=== PATIENT | male | born 1940 | race Caucasian/White ===

== ENCOUNTER 2023-10-22 17:29 | Inpatient (IN) | payer OTHER ==
[2023-10-22] MEDS ORDERED: CEFTRIAXONE 1 GM/50 ML BAG ONE (20:18)
[2023-10-22] MEDS ORDERED: AZITHROMYCIN IVPB 500 MG/250 ML BAG IVPB ONE (20:19)
[2023-10-22] MEDS ORDERED: DEXTROSE 50%-WATER 25 GM/50 ML DISP.SYRIN ONE (20:27)
[2023-10-22 20:29] LABS: BASO % 0.5 % (0-2.0); EOS % 1.9 % (0-4.5); HEMATOCRIT 35.1 % (35.4-49); LYMPH % 6.3 % (8-40); MCH 28.8 pg (25.7-33.7); MCHC 31.3 g/dl (32.0-35.9); MEAN CELL VOLUME 91.9 fl (80-96); MEAN PLT VOLUME 7.9 fl (7.5-11.1); MONO % 8.8 % (3.8-10.2); NEUT % 82.5 % (42.8-82.8); PLATELET COUNT 271 10^3/uL (134-434); RBC 3.82 M/mm3 (4.00-5.60); RDW 22.1 % (11.9-15.9); WHITE BLOOD COUNT 8.4 K/mm3 (4.0-10.0)
[2023-10-22] MEDS: CEFTRIAXONE 1 GM in DEXTROSE 5%-WATER - 100 ML IVPB ONE (20:31)
[2023-10-22] MEDS: DEXTROSE 50%-WATER - 25 GM/50 ML VIAL IVPUSH ONE (20:31)
[2023-10-22 20:33] LABS: EPI CELLS 1 /uL (0-25.1); HYALINE CASTS 1 /uL (0-3.1); PH,URINE 7.5 (5.0-8.0); URINE APPEARANCE TURBID; URINE BACTERIA 204 /uL (0-1359); URINE BILIRUBIN NEGATIVE (NEGATIVE); URINE COLOR YELLOW; URINE GLUCOSE (UA) NEGATIVE (NEGATIVE); URINE KETONE NEGATIVE (NEGATIVE); URINE LEUK ESTERASE 3+ (NEGATIVE); URINE NITRITE NEGATIVE (NEGATIVE); URINE PROTEIN 2+ (NEGATIVE); URINE RBC 65 /uL (0-23.9); URINE WBC 7022 /uL (0-25.8)
[2023-10-22 20:39] LABS: INR 1.24 (0.83-1.09); PROTHROMBIN TIME (PATIENT) 13.9 SEC (9.7-13.0)
[2023-10-22] MEDS: AZITHROMYCIN IVPB 500 MG in DEXTROSE 5%-WATER - 250 ML IVPB ONE (20:41)
[2023-10-22 20:42] LABS: ACTIVATED PTT 32.1 SECONDS (25.2-36.5)
[2023-10-22 20:46] LABS: CHLORIDE 97 mmol/L (98-107); POTASSIUM 4.8 mmol/L (3.5-5.1); SODIUM 134 mmol/L (136-145)
[2023-10-22 20:48] LABS: ANION GAP 8 mmol/L (4-13); CALCIUM 8.4 mg/dL (8.5-10.1); CO2 29 mmol/L (21-32)
[2023-10-22 20:49] LABS: ALBUMIN 2.4 g/dl (3.4-5.0); BLOOD UREA NITROGEN 37.2 mg/dL (7-18)
[2023-10-22 20:51] LABS: CREATININE 4.1 mg/dL (0.55-1.3); SGPT/ALT 15 U/L (13-61)
[2023-10-22 20:52] LABS: SGOT/AST 24 U/L (15-37)
[2023-10-22 20:53] LABS: BILIRUBIN,TOTAL 0.4 mg/dL (0.2-1); GLUCOSE,RANDOM 47 mg/dL (74-106); TOT PROT 6.6 g/dl (6.4-8.2)
[2023-10-22 20:54] LABS: ALK PHOS 115 U/L (45-117)
[2023-10-22 21:11] LABS: ANISOCYTOSIS 3+; MACROCYTOSIS 1+; OVALOCYTE 1+
[2023-10-22 21:37] LABS: YEAST NEGATIVE (NEGATIVE)
[2023-10-22] MEDS: SODIUM CHLORIDE 1,000 ML IV STA (22:00)
[2023-10-22 23:21] LABS: MAGNESIUM 2.1 mg/dL (1.8-2.4)
[2023-10-22 23:25] LABS: PHOSPHOROUS 4.1 mg/dL (2.5-4.9)
[2023-10-23] MEDS: INSULIN ASPART SLIDING SCALE (NOVOLOG) 1 VIAL SQ SCH (01:19)
[2023-10-23] MEDS: PIPERACILLIN/TAZOB 4.5 GM 4.5 GM in DEXTROSE 5%-WATER 100 ML IVPB SCH (03:30)
[2023-10-23] MEDS: PIPERACILLIN/TAZOB 2.25 GM 2.25 GM in DEXTROSE 5%-WATER - 50 ML IVPB SCH (03:53)
[2023-10-23] MEDS ORDERED: DEXTROSE 50%-WATER 25 GM/50 ML DISP.SYRIN ONE (05:37)
[2023-10-23] MEDS: HEPARIN NA (PORCINE) 5,000 UNITS/ML 1ML VIAL SQ SCH (05:47)
[2023-10-23] MEDS: SODIUM BICARBONATE 650 MG TABLET PO SCH (05:47)
[2023-10-23] MEDS: DEXTROSE 50%-WATER - 25 GM/50 ML VIAL IVPUSH ONE (05:51)
[2023-10-23] MEDS ORDERED: PNEUMOC 20-VAL CONJ-DIP CRM/PF 0.5 ML SYRINGE IM ONE (06:52)
[2023-10-23] MEDS ORDERED: AZITHROMYCIN IVPB 500 MG/250 ML BAG IVPB SCH (10:00)
[2023-10-23 11:17] LABS: BASO % 0.4 % (0-2.0); EOS % 2.8 % (0-4.5); HEMATOCRIT 34.5 % (35.4-49); HEMOGLOBIN 10.9 GM/dL (11.7-16.9); LYMPH % 7.3 % (8-40); MCHC 31.5 g/dl (32.0-35.9); MEAN CELL VOLUME 91.9 fl (80-96); MONO % 10.2 % (3.8-10.2); NEUT % 79.3 % (42.8-82.8); PLATELET COUNT 260 10^3/uL (134-434); RBC 3.75 M/mm3 (4.00-5.60); RDW 21.2 % (11.9-15.9); WHITE BLOOD COUNT 6.9 K/mm3 (4.0-10.0)
[2023-10-23 11:32] LABS: POTASSIUM 4.8 mmol/L (3.5-5.1)
[2023-10-23 11:34] LABS: CALCIUM 8.6 mg/dL (8.5-10.1)
[2023-10-23 11:35] LABS: ALBUMIN 2.3 g/dl (3.4-5.0); BLOOD UREA NITROGEN 39.6 mg/dL (7-18); MAGNESIUM 2.3 mg/dL (1.8-2.4)
[2023-10-23 11:38] LABS: CREATININE 4.5 mg/dL (0.55-1.3); PHOSPHOROUS 3.9 mg/dL (2.5-4.9)
[2023-10-23 11:39] LABS: BILIRUBIN,TOTAL 0.5 mg/dL (0.2-1)
[2023-10-23 11:41] LABS: TOT PROT 6.3 g/dl (6.4-8.2)
[2023-10-23] MEDS ORDERED: ACYCLOVIR INJECTION 500 MG in DEXTROSE 5%-WATER - 100 ML IVPB SCH (12:00)
[2023-10-23] MEDS: POLYETHYLENE GLYCOL (HEALTHYLAX) 3350 17 GM PACKET PO SCH (12:12)
[2023-10-23] MEDS: PANTOPRAZOLE 40 MG TABLET PO SCH (12:25)
[2023-10-23] MEDS: AZITHROMYCIN IVPB 250 MG in DEXTROSE 5%-WATER - 250 ML IVPB SCH (12:25)
[2023-10-23] MEDS: VITAMIN B COMP W-C 1 EA TABLET (NEPHRO-VITE) PO SCH (12:25)
[2023-10-23] MEDS: valACYclovir HCL 500 MG TABLET (FP) PO SCH ×2 (12:56→12:57)
[2023-10-23] MEDS: LORazepam 2 MG/ML SDV VIAL IVPUSH ONE (12:56)
[2023-10-23] MEDS: ACYCLOVIR INJECTION 500 MG in DEXTROSE 5%-WATER - 100 ML IVPB SCH (12:57)
[2023-10-23] MEDS: ACETAMINOPHEN 1000 MG/100 ML BAG IVPB ONE (14:45)
[2023-10-23 15:29] LABS: N-TERMINAL BNP 8568.6 pg/ml (5-450)
[2023-10-23] MEDS: DEXTROSE 5% IVPB SCH (15:43)
[2023-10-23] MEDS: WATER IVPB SCH (15:43)
[2023-10-23] MEDS: ACYCLOVIR IVPB SCH (15:43)
[2023-10-23] MEDS ORDERED: SODIUM CHLORIDE 250 ML IV PRN (20:03)
[2023-10-23] MEDS: LATANOPROST 0.005% OPHTH SOLN 2.5ML BOTTLE OU SCH (22:24)
[2023-10-23] MEDS: PIPERACILLIN/TAZOB 3.375 GM 3.375 GM in DEXTROSE 5%-WATER - 50 ML IVPB SCH (22:24)
[2023-10-23] MEDS: ACETAMINOPHEN 325 MG TABLET (FP) PO ONE (23:00)
[2023-10-24] MEDS: DEXTROSE 50%-WATER 25 GM/50 ML DISP.SYRIN IVPUSH ONE (06:31)
[2023-10-24 08:59] LABS: HEMATOCRIT 39.4 % (35.4-49); HEMOGLOBIN 12.6 GM/dL (11.7-16.9); MCH 29.2 pg (25.7-33.7); MEAN CELL VOLUME 91.5 fl (80-96); MEAN PLT VOLUME 7.6 fl (7.5-11.1); PLATELET COUNT 258 10^3/uL (134-434); RBC 4.31 M/mm3 (4.00-5.60); RDW 21.2 % (11.9-15.9); WHITE BLOOD COUNT 6.5 K/mm3 (4.0-10.0)
[2023-10-24 09:04] LABS: POTASSIUM 4.3 mmol/L (3.5-5.1)
[2023-10-24 09:16] LABS: CALCIUM 9.1 mg/dL (8.5-10.1)
[2023-10-24 09:17] LABS: BLOOD UREA NITROGEN 46.3 mg/dL (7-18); MAGNESIUM 2.4 mg/dL (1.8-2.4)
[2023-10-24 09:20] LABS: CREATININE 5.1 mg/dL (0.55-1.3)
[2023-10-24 09:21] LABS: PHOSPHOROUS 4.8 mg/dL (2.5-4.9)
[2023-10-24 12:55] LABS: ARTERIAL BLD GAS O2 SATURATION 98.1 % (95-98); ARTERIAL BLOOD GAS BASE EXCESS 1.2 mmol/L (-2-2)
[2023-10-24 12:58] LABS: ALLENS TEST POSITIVE
[2023-10-24] MEDS ORDERED: VANCOMYCIN/WATER FOR INJ (PEG) 1,000 MG/200 ML BAG IVPB ONE (19:00)
[2023-10-24] MEDS: PIPERACILLIN/TAZOB 2.25 GM 2.25 GM in DEXTROSE 5%-WATER - 50 ML IVPB SCH (20:15)
[2023-10-24] MEDS: EPOETIN ALFA-EPBX 4,000 UNIT/ML VIAL SQ SCH (20:16)
[2023-10-24] MEDS: VANCOMYCIN/WATER FOR INJ (PEG) 1,000 MG/200 ML BAG IVPB ONE (23:22)
[2023-10-25] MEDS: DEXTROSE 50%-WATER 25 GM/50 ML DISP.SYRIN IVPUSH ONE (01:13)
[2023-10-25 09:34] LABS: BASO % 0.9 % (0-2.0); EOS % 3.4 % (0-4.5); HEMATOCRIT 32.8 % (35.4-49); HEMOGLOBIN 10.3 GM/dL (11.7-16.9); LYMPH % 8.7 % (8-40); MCH 28.9 pg (25.7-33.7); MCHC 31.5 g/dl (32.0-35.9); MEAN CELL VOLUME 91.7 fl (80-96); MEAN PLT VOLUME 7.4 fl (7.5-11.1); MONO % 8.3 % (3.8-10.2); NEUT % 78.7 % (42.8-82.8); PLATELET COUNT 238 10^3/uL (134-434); RBC 3.58 M/mm3 (4.00-5.60); RDW 21.2 % (11.9-15.9); WHITE BLOOD COUNT 7.2 K/mm3 (4.0-10.0)
[2023-10-25 09:54] LABS: POTASSIUM 3.4 mmol/L (3.5-5.1)
[2023-10-25] MEDS ORDERED: ACYCLOVIR IVPB SCH (10:00)
[2023-10-25] MEDS ORDERED: WATER IVPB SCH (10:00)
[2023-10-25] MEDS ORDERED: DEXTROSE 5% IVPB SCH (10:00)
[2023-10-25] MEDS ORDERED: valACYclovir HCL 500 MG TABLET (FP) PO SCH (10:00)
[2023-10-25 10:19] LABS: ALBUMIN 2.1 g/dl (3.4-5.0); BLOOD UREA NITROGEN 23.2 mg/dL (7-18)
[2023-10-25 10:20] LABS: MAGNESIUM 2.1 mg/dL (1.8-2.4)
[2023-10-25 10:23] LABS: BILIRUBIN,TOTAL 0.7 mg/dL (0.2-1); CREATININE 3.1 mg/dL (0.55-1.3); TOT PROT 5.7 g/dl (6.4-8.2)
[2023-10-25] MEDS ORDERED: SODIUM CHLORIDE 250 ML IV PRN (13:22)
[2023-10-25] MEDS: POTASSIUM CHLORIDE ORAL LIQUID 20 MEQ/15 ML PO ONE (15:38)
[2023-10-25] MEDS: KCL 10 MEQ IVPB 10 MEQ/100 ML INFUS.BAG IVPB SCH (15:50)
[2023-10-26] MEDS ORDERED: DEXTROSE 50%-WATER 25 GM/50 ML DISP.SYRIN ONE (07:01)
[2023-10-26 07:52] LABS: BASO % 0.8 % (0-2.0); EOS % 2.8 % (0-4.5); HEMATOCRIT 33.6 % (35.4-49); HEMOGLOBIN 10.7 GM/dL (11.7-16.9); LYMPH % 11.4 % (8-40); MCH 29.4 pg (25.7-33.7); MCHC 31.8 g/dl (32.0-35.9); MEAN CELL VOLUME 92.3 fl (80-96); MEAN PLT VOLUME 7.7 fl (7.5-11.1); MONO % 10.1 % (3.8-10.2); NEUT % 74.9 % (42.8-82.8); PLATELET COUNT 206 10^3/uL (134-434); RBC 3.64 M/mm3 (4.00-5.60); RDW 21.2 % (11.9-15.9); WHITE BLOOD COUNT 7.5 K/mm3 (4.0-10.0)
[2023-10-26 08:14] LABS: CHLORIDE 102 mmol/L (98-107); POTASSIUM 3.9 mmol/L (3.5-5.1); SODIUM 139 mmol/L (136-145)
[2023-10-26 08:28] LABS: CALCIUM 8.3 mg/dL (8.5-10.1)
[2023-10-26 08:29] LABS: ANION GAP 14 mmol/L (4-13); BLOOD UREA NITROGEN 29.7 mg/dL (7-18); CO2 23 mmol/L (21-32); MAGNESIUM 2.2 mg/dL (1.8-2.4)
[2023-10-26 08:32] LABS: CREATININE 3.8 mg/dL (0.55-1.3); SGOT/AST 9 U/L (15-37); SGPT/ALT 12 U/L (13-61)
[2023-10-26 08:34] LABS: TOT PROT 5.8 g/dl (6.4-8.2)
[2023-10-26 08:48] LABS: ALK PHOS 117 U/L (45-117); GLUCOSE,RANDOM 37 mg/dL (74-106)
[2023-10-26] MEDS: ALBUMIN HUMAN 25% 12.5 GM/50 ML VIAL IV SCH (09:30)
[2023-10-26 09:53] LABS: ANISOCYTOSIS 2+; MACROCYTOSIS 0
[2023-10-27 08:08] LABS: POTASSIUM 3.8 mmol/L (3.5-5.1)
[2023-10-27 08:15] LABS: CALCIUM 8.8 mg/dL (8.5-10.1)
[2023-10-27 08:17] LABS: BLOOD UREA NITROGEN 16.9 mg/dL (7-18)
[2023-10-27 08:19] LABS: CREATININE 3.2 mg/dL (0.55-1.3)
[2023-10-27 08:20] LABS: BILIRUBIN,TOTAL 0.9 mg/dL (0.2-1); TOT PROT 6.4 g/dl (6.4-8.2)
[2023-10-27 08:43] LABS: ALBUMIN 2.8 g/dl (3.4-5.0)
[2023-10-27 08:59] LABS: BASO % 0.8 % (0-2.0); EOS % 3.1 % (0-4.5); HEMATOCRIT 33.8 % (35.4-49); HEMOGLOBIN 10.7 GM/dL (11.7-16.9); LYMPH % 14.5 % (8-40); MCH 29.3 pg (25.7-33.7); MCHC 31.7 g/dl (32.0-35.9); MEAN CELL VOLUME 92.3 fl (80-96); MEAN PLT VOLUME 7.9 fl (7.5-11.1); MONO % 11.9 % (3.8-10.2); NEUT % 69.7 % (42.8-82.8); PLATELET COUNT 184 10^3/uL (134-434); RBC 3.66 M/mm3 (4.00-5.60); RDW 21.4 % (11.9-15.9); WHITE BLOOD COUNT 5.7 K/mm3 (4.0-10.0)
[2023-10-27] MEDS: LATANOPROST 0.005% OPHTH SOLN 2.5ML BOTTLE OU SCH (22:32)
[2023-10-27] MEDS: PIPERACILLIN/TAZOB 3.375 GM 3.375 GM in DEXTROSE 5%-WATER - 50 ML IVPB SCH (22:33)
[2023-10-27] MEDS: SODIUM BICARBONATE 650 MG TABLET PO SCH (22:33)
[2023-10-27] MEDS: HEPARIN NA (PORCINE) 5,000 UNITS/ML 1ML VIAL SQ SCH (22:33)
[2023-10-27] MEDS: POLYETHYLENE GLYCOL (HEALTHYLAX) 3350 17 GM PACKET PO SCH (22:33)
[2023-10-27 23:55] VITALS: BMI 18.8
[2023-10-28] MEDS: INSULIN ASPART SLIDING SCALE (NOVOLOG) 1 VIAL SQ SCH (06:29)
[2023-10-28 08:59] LABS: HEMATOCRIT 33.9 % (35.4-49); HEMOGLOBIN 10.6 GM/dL (11.7-16.9); MCH 29.3 pg (25.7-33.7); MCHC 31.4 g/dl (32.0-35.9); MEAN CELL VOLUME 93.3 fl (80-96); MEAN PLT VOLUME 8.4 fl (7.5-11.1); PLATELET COUNT 170 10^3/uL (134-434); RBC 3.63 M/mm3 (4.00-5.60); RDW 21.4 % (11.9-15.9); WHITE BLOOD COUNT 6.9 K/mm3 (4.0-10.0)
[2023-10-28 09:24] LABS: BLOOD UREA NITROGEN 23.8 mg/dL (7-18); CALCIUM 8.7 mg/dL (8.5-10.1)
[2023-10-28 09:28] LABS: CREATININE 4.3 mg/dL (0.55-1.3)
[2023-10-28] MEDS: PANTOPRAZOLE 40 MG TABLET PO SCH (10:10)
[2023-10-28] MEDS: VITAMIN B COMP W-C 1 EA TABLET (NEPHRO-VITE) PO SCH (10:10)
[2023-10-28] MEDS ORDERED: SODIUM CHLORIDE 250 ML IV PRN (12:45)
[2023-10-28] MEDS: EPOETIN ALFA-EPBX 3,000 UNIT/ML VIAL SQ ONE (13:54)
[2023-10-28] MEDS: VANCOMYCIN/WATER FOR INJ (PEG) 1,000 MG/200 ML BAG IVPB ONE (16:38)
[2023-10-28] MEDS ORDERED: VANCOMYCIN/WATER FOR INJ (PEG) 1,000 MG/200 ML BAG IVPB ONE (18:00)
[2023-10-29] MEDS: VANCOMYCIN 1,000 MG in DEXTROSE 5%-WATER - 250 ML IVPB ONE (07:57)
[2023-10-29] MEDS: AMINO ACIDS/PROTEIN HYDROLYS 30 ML LIQUID.PKT PO SCH (09:15)
[2023-10-29 11:31] LABS: BASO % 1.7 % (0-2.0); EOS % 3.5 % (0-4.5); HEMATOCRIT 37.2 % (35.4-49); HEMOGLOBIN 11.6 GM/dL (11.7-16.9); LYMPH % 13.4 % (8-40); MCH 29.2 pg (25.7-33.7); MCHC 31.2 g/dl (32.0-35.9); MEAN CELL VOLUME 93.8 fl (80-96); MEAN PLT VOLUME 8.5 fl (7.5-11.1); MONO % 9.1 % (3.8-10.2); NEUT % 72.3 % (42.8-82.8); PLATELET COUNT 152 10^3/uL (134-434); RBC 3.96 M/mm3 (4.00-5.60); WHITE BLOOD COUNT 5.3 K/mm3 (4.0-10.0)
[2023-10-29 11:51] LABS: POTASSIUM 4.1 mmol/L (3.5-5.1)
[2023-10-29 11:53] LABS: ALBUMIN 2.6 g/dl (3.4-5.0); BLOOD UREA NITROGEN 11.7 mg/dL (7-18); CALCIUM 8.7 mg/dL (8.5-10.1)
[2023-10-29 11:58] LABS: BILIRUBIN,TOTAL 0.6 mg/dL (0.2-1)
[2023-10-29 12:17] LABS: ANISOCYTOSIS 2+; MACROCYTOSIS 1+
[2023-10-29] MEDS ORDERED: INSULIN ASPART SLIDING SCALE (NOVOLOG) 1 VIAL SQ ONE ×3 (12:21→20:38)
[2023-10-30] MEDS ORDERED: SODIUM CHLORIDE 250 ML IV PRN (08:22)
[2023-10-30 11:09] LABS: INR 1.2 (0.83-1.09); PROTHROMBIN TIME (PATIENT) 13.5 SEC (9.7-13.0)
[2023-10-30 11:12] LABS: ACTIVATED PTT 32.3 SECONDS (25.2-36.5)
[2023-10-30 14:05] LABS: POTASSIUM 3.6 mmol/L (3.5-5.1)
[2023-10-30 14:07] LABS: CALCIUM 8.7 mg/dL (8.5-10.1)
[2023-10-30 14:08] LABS: BLOOD UREA NITROGEN 7.8 mg/dL (7-18)
[2023-10-30 14:11] LABS: CREATININE 2.1 mg/dL (0.55-1.3)
[2023-10-30] MEDS ORDERED: PROPOFOL 20 ML ONE (18:15)
[2023-10-30] MEDS ORDERED: ONDANSETRON 4 MG/2 ML VIAL ONE (18:21)
[2023-10-30] MEDS ORDERED: LIDOCAINE HCL/PF 2% SDV 5ML VIAL ONE (18:21)
[2023-10-30] MEDS ORDERED: DEXAMETHASONE SOD PHOSPHATE 4 MG/1 ML VIAL ONE (18:21)
[2023-10-30] MEDS ORDERED: ROCURONIUM BROMIDE 50 MG/5 ML SYRINGE ONE (18:59)
[2023-10-30] MEDS ORDERED: ceFAZolin SODIUM 1 GM VIAL ONE (19:06)
[2023-10-30] MEDS: ceFAZolin SODIUM 1 GM VIAL IVPB ONE (19:07)
[2023-10-30] MEDS ORDERED: LACTATED RINGERS SOLUTION 1,000 ML IV SCH (20:15)
[2023-10-30] MEDS ORDERED: VANCOMYCIN 1,000 MG VIAL (RESTRICTED TO ID ONLY) ONE (20:22)
[2023-10-30] MEDS: LACTATED RINGERS SOLUTION 1,000 ML IV SCH (20:27)
[2023-10-30] MEDS: VANCOMYCIN/WATER FOR INJ (PEG) 1,000 MG/200 ML BAG IVPB ONE (20:27)
[2023-10-30] MEDS: LATANOPROST 0.005% OPHTH SOLN 2.5ML BOTTLE OU SCH (22:19)
[2023-10-30] MEDS: PIPERACILLIN/TAZOB 3.375 GM 3.375 GM in DEXTROSE 5%-WATER - 50 ML IVPB SCH (22:19)
[2023-10-30] MEDS: POLYETHYLENE GLYCOL (HEALTHYLAX) 3350 17 GM PACKET PO SCH (22:20)
[2023-10-30] MEDS: HEPARIN NA (PORCINE) 5,000 UNITS/ML 1ML VIAL SQ SCH (22:20)
[2023-10-30] MEDS: morphine SULFATE 4 MG/ML VIAL SQ PRN (22:21)
[2023-10-31] MEDS: INSULIN ASPART SLIDING SCALE (NOVOLOG) 1 VIAL SQ SCH (06:16)
[2023-10-31] MEDS: VITAMIN B COMP W-C 1 EA TABLET (NEPHRO-VITE) PO SCH (09:48)
[2023-10-31] MEDS: PANTOPRAZOLE 40 MG TABLET PO SCH (09:48)
[2023-10-31] MEDS: AMINO ACIDS/PROTEIN HYDROLYS 30 ML LIQUID.PKT PO SCH (09:48)
[2023-10-31 10:16] LABS: BASO % 0.8 % (0-2.0); EOS % 1.7 % (0-4.5); HEMOGLOBIN 10.6 GM/dL (11.7-16.9); LYMPH % 7.6 % (8-40); MCH 29.5 pg (25.7-33.7); MCHC 31.3 g/dl (32.0-35.9); MEAN CELL VOLUME 94.3 fl (80-96); MEAN PLT VOLUME 8.7 fl (7.5-11.1); MONO % 8.9 % (3.8-10.2); PLATELET COUNT 157 10^3/uL (134-434); RDW 22.8 % (11.9-15.9); WHITE BLOOD COUNT 13.8 K/mm3 (4.0-10.0)
[2023-10-31 10:28] LABS: INR 1.09 (0.83-1.09); PROTHROMBIN TIME (PATIENT) 12.5 SEC (9.7-13.0)
[2023-10-31 10:32] LABS: POTASSIUM 3.6 mmol/L (3.5-5.1)
[2023-10-31 10:39] LABS: BLOOD UREA NITROGEN 15.6 mg/dL (7-18); CALCIUM 8.2 mg/dL (8.5-10.1)
[2023-10-31 10:40] LABS: ALBUMIN 2.5 g/dl (3.4-5.0); MAGNESIUM 2.1 mg/dL (1.8-2.4)
[2023-10-31 10:44] LABS: CREATININE 3.1 mg/dL (0.55-1.3)
[2023-10-31 10:45] LABS: BILIRUBIN,TOTAL 0.3 mg/dL (0.2-1); TOT PROT 6.6 g/dl (6.4-8.2)
[2023-10-31] MEDS: ACETAMINOPHEN 1000 MG/100 ML BAG IVPB PRN (11:58)
[2023-11-01 08:37] LABS: BASO % 1.4 % (0-2.0); EOS % 2.5 % (0-4.5); HEMATOCRIT 30.1 % (35.4-49); HEMOGLOBIN 9.6 GM/dL (11.7-16.9); LYMPH % 6.9 % (8-40); MCH 30.1 pg (25.7-33.7); MCHC 31.7 g/dl (32.0-35.9); MEAN CELL VOLUME 94.7 fl (80-96); MEAN PLT VOLUME 8.5 fl (7.5-11.1); MONO % 6.7 % (3.8-10.2); NEUT % 82.5 % (42.8-82.8); PLATELET COUNT 148 10^3/uL (134-434); RBC 3.18 M/mm3 (4.00-5.60); RDW 22.6 % (11.9-15.9); WHITE BLOOD COUNT 12.4 K/mm3 (4.0-10.0)
[2023-11-01 08:40] LABS: INR 1.19 (0.83-1.09); PROTHROMBIN TIME (PATIENT) 13.4 SEC (9.7-13.0)
[2023-11-01 08:45] LABS: CHLORIDE 104 mmol/L (98-107); POTASSIUM 3.5 mmol/L (3.5-5.1); SODIUM 141 mmol/L (136-145)
[2023-11-01 08:46] LABS: CALCIUM 7.9 mg/dL (8.5-10.1)
[2023-11-01 08:47] LABS: ALBUMIN 2.2 g/dl (3.4-5.0); ANION GAP 10 mmol/L (4-13); BLOOD UREA NITROGEN 23.9 mg/dL (7-18); CO2 27 mmol/L (21-32); GLUCOSE,RANDOM 104 mg/dL (74-106); MAGNESIUM 1.9 mg/dL (1.8-2.4)
[2023-11-01 08:51] LABS: CREATININE 4.2 mg/dL (0.55-1.3); SGOT/AST 9 U/L (15-37); SGPT/ALT < 6 U/L (13-61)
[2023-11-01 08:52] LABS: BILIRUBIN,TOTAL 0.4 mg/dL (0.2-1); TOT PROT 6.1 g/dl (6.4-8.2)
[2023-11-01 08:53] LABS: ALK PHOS 76 U/L (45-117)
[2023-11-02 08:38] LABS: INR 1.2 (0.83-1.09); PROTHROMBIN TIME (PATIENT) 13.7 SEC (9.7-13.0)
[2023-11-02 08:53] LABS: CHLORIDE 102 mmol/L (98-107); POTASSIUM 3.5 mmol/L (3.5-5.1); SODIUM 138 mmol/L (136-145)
[2023-11-02 08:58] LABS: ANION GAP 10 mmol/L (4-13); BLOOD UREA NITROGEN 36.6 mg/dL (7-18); CALCIUM 7.9 mg/dL (8.5-10.1); CO2 26 mmol/L (21-32); MAGNESIUM 1.9 mg/dL (1.8-2.4)
[2023-11-02 08:59] LABS: GLUCOSE,RANDOM 85 mg/dL (74-106)
[2023-11-02 09:01] LABS: SGOT/AST 9 U/L (15-37); SGPT/ALT < 6 U/L (13-61)
[2023-11-02 09:03] LABS: BILIRUBIN,TOTAL 0.4 mg/dL (0.2-1); TOT PROT 5.8 g/dl (6.4-8.2)
[2023-11-02 09:06] LABS: ALK PHOS 79 U/L (45-117)
[2023-11-02] MEDS ORDERED: oxyCODONE HCL 5 MG TABLET PO PRN (15:13)
[2023-11-02] MEDS ORDERED: SODIUM CHLORIDE 250 ML IV PRN (17:15)
[2023-11-02 17:40] LABS: HEMOGLOBIN 9.3 GM/dL (11.7-16.9); MCH 29.6 pg (25.7-33.7); MEAN CELL VOLUME 92.5 fl (80-96); MEAN PLT VOLUME 9.1 fl (7.5-11.1); PLATELET COUNT 154 10^3/uL (134-434); RBC 3.13 M/mm3 (4.00-5.60); RDW 22.9 % (11.9-15.9); WHITE BLOOD COUNT 10.3 K/mm3 (4.0-10.0)
[2023-11-02] MEDS: EPOETIN ALFA-EPBX 4,000 UNIT/ML VIAL IVPUSH ONE (19:18)
[2023-11-03 15:35] VITALS: BP 119/70; PULSE 92; RESP 18; TEMP 98.8
== END 2023-11-03 15:45 | DRG 474 ==
LOC: JER 17:29 → JERBED 21:57 → J4W 10-23 02:13 → J8W 10-27 18:08
PROVIDERS: ADMIT Internal Medicine; ATTEND Nurse Practitioner Acute Care
PROC: 5A1D70Z Performance of Urinary Filtration, Intermittent, Less than 6 Hours Per Day (ICD-10-PCS; 2023-10-23)
PROC: 0Y6C0Z1 Detachment at Right Upper Leg, High, Open Approach (ICD-10-PCS; principal; 2023-10-30 17:00)
DX: T87.81 Dehiscence of amputation stump (principal); G93.41 Metabolic encephalopathy; N18.6 End stage renal disease; J18.9 Pneumonia, unspecified organism; I31.39 Other pericardial effusion (noninflammatory); J90 Pleural effusion, not elsewhere classified; N39.0 Urinary tract infection, site not specified; T87.43 Infection of amputation stump, right lower extremity; I25.10 Atherosclerotic heart disease of native coronary artery without angina pectoris; K21.9 Gastro-esophageal reflux disease without esophagitis; J44.9 Chronic obstructive pulmonary disease, unspecified; F03.90 Unspecified dementia, unspecified severity, without behavioral disturbance, psychotic disturbance, mood disturbance, and anxiety; E11.649 Type 2 diabetes mellitus with hypoglycemia without coma; B02.9 Zoster without complications; B96.5 Pseudomonas (aeruginosa) (mallei) (pseudomallei) as the cause of diseases classified elsewhere; Z99.2 Dependence on renal dialysis; Y83.5 Amputation of limb(s) as the cause of abnormal reaction of the patient, or of later complication, without mention of misadventure at the time of the procedure
CPT/HCPCS: 0241U-QW; 36415; 36600; 70450-TC; 71045-TC-FY; 71250-TC; 76604-TC; 76942; 80048; 80053; 81003; 82140; 82803; 82962; 83605; 83735; 83880; 84100; 84443; 84484; 85025; 85027; 85610; 85730; 86704; 86705; 86803; 86850; 86900; 86901; 86922; 87040; 87070; 87086; 87186; 87205; 87340; 87517; 87635; 88305-TC; 88311-TC; 93005; 93010; 93306-TC; 94760; 97162-GP; 99285-25; G0480; J0131; J1644; P9047; Q5106

== ENCOUNTER 2023-12-19 03:01 | Inpatient (IN) | payer OTHER ==
[2023-12-19 05:22] LABS: VENOUS BASE EXCESS 2.3 mmol/L (-2-2); VENOUS O2 SATURATION 64.9 % (70-80); VENOUS PCO2 47.9 mmHg (38-52); VENOUS PH 7.386 (7.310-7.410)
[2023-12-19 05:32] LABS: INR 1.17 (0.83-1.09); PROTHROMBIN TIME (PATIENT) 13.2 SEC (9.7-13.0)
[2023-12-19 05:35] LABS: ACTIVATED PTT 38.8 SECONDS (25.2-36.5)
[2023-12-19 05:38] LABS: POTASSIUM 4.9 mmol/L (3.5-5.1)
[2023-12-19 05:40] LABS: CALCIUM 8.8 mg/dL (8.5-10.1)
[2023-12-19 05:41] LABS: ALBUMIN 2.7 g/dl (3.4-5.0); BLOOD UREA NITROGEN 48.2 mg/dL (7-18)
[2023-12-19 05:44] LABS: CREATININE 2.9 mg/dL (0.55-1.3)
[2023-12-19 05:46] LABS: BASO % 0.6 % (0-2.0); EOS % 5.8 % (0-4.5); HEMATOCRIT 45.1 % (35.4-49); HEMOGLOBIN 15.1 GM/dL (11.7-16.9); LYMPH % 15.1 % (8-40); MCH 31.4 pg (25.7-33.7); MCHC 33.6 g/dl (32.0-35.9); MEAN CELL VOLUME 93.5 fl (80-96); MONO % 10.9 % (3.8-10.2); NEUT % 67.6 % (42.8-82.8); PLATELET COUNT 214 10^3/uL (134-434); RBC 4.82 M/mm3 (4.00-5.60); RDW 20.9 % (11.9-15.9); TOT PROT 7.4 g/dl (6.4-8.2); WHITE BLOOD COUNT 7.3 K/mm3 (4.0-10.0)
[2023-12-19 07:00] LABS: ANISOCYTOSIS 1+; MACROCYTOSIS 1+
[2023-12-19 07:48] LABS: BILIRUBIN,TOTAL 0.3 mg/dL (0.2-1)
[2023-12-19] MEDS ORDERED: POLYETHYLENE GLYCOL (HEALTHYLAX) 3350 17 GM PACKET PO PRN (08:49)
[2023-12-19] MEDS ORDERED: ACETAMINOPHEN 325 MG TABLET (FP) PO PRN (08:49)
[2023-12-19] MEDS: POVIDONE-IODINE 10% SOLN 118 ML BOTTLE TP SCH (11:10)
[2023-12-19] MEDS ORDERED: PANTOPRAZOLE 40 MG TABLET PO ONE (11:38)
[2023-12-19] MEDS ORDERED: CLOPIDOGREL BISULFATE 75 MG TABLET (FP) ONE (11:38)
[2023-12-19] MEDS ORDERED: PIPERACILLIN/TAZOB 2.25 GM 2.25 GM/50 ML BAG IVPB ONE (11:39)
[2023-12-19] MEDS ORDERED: HEPARIN NA (PORCINE) 5,000 UNITS/ML 1ML VIAL ONE ×2 (11:39→22:10)
[2023-12-19] MEDS ORDERED: ASPIRIN 81 MG CHEWABLE TABLETS ONE (11:39)
[2023-12-19] MEDS: PANTOPRAZOLE 40 MG TABLET PO SCH (11:45)
[2023-12-19] MEDS: ASPIRIN COATED 81 MG TABLET.EC PO SCH (11:45)
[2023-12-19] MEDS: CLOPIDOGREL BISULFATE 75 MG TABLET (FP) PO SCH (11:45)
[2023-12-19] MEDS: HEPARIN NA (PORCINE) 5,000 UNITS/ML 1ML VIAL SQ SCH (11:45)
[2023-12-19] MEDS: PIPERACILLIN/TAZOB 4.5 GM 2.25 GM in DEXTROSE 5%-WATER 100 ML IVPB SCH (12:00)
[2023-12-19 12:35] LABS: EPI CELLS 5 /uL (0-25.1); HYALINE CASTS 0 /uL (0-3.1); PH,URINE 8.5 (5.0-8.0); URINE APPEARANCE CLEAR; URINE BACTERIA 5 /uL (0-1359); URINE BILIRUBIN NEGATIVE (NEGATIVE); URINE COLOR YELLOW; URINE GLUCOSE (UA) NEGATIVE (NEGATIVE); URINE KETONE NEGATIVE (NEGATIVE); URINE LEUK ESTERASE NEGATIVE (NEGATIVE); URINE NITRITE NEGATIVE (NEGATIVE); URINE PROTEIN 2+ (NEGATIVE); URINE UROBILINOGEN 0.2 mg/dL (0.2-1.0); URINE WBC 10 /uL (0-25.8)
[2023-12-19 12:37] LABS: URINE RBC 187.9 /uL (0-23.9); YEAST NEGATIVE (NEGATIVE)
[2023-12-19] MEDS: PIPERACILLIN/TAZOB 2.25 GM 2.25 GM in DEXTROSE 5%-WATER - 50 ML IVPB SCH (13:00)
[2023-12-19] MEDS ORDERED: VANCOMYCIN 1 GRAM (PRE-DOCKED) 1,000 MG/250 ML BAG IVPB ONE (14:13)
[2023-12-19] MEDS: VANCOMYCIN/WATER FOR INJ (PEG) 1,000 MG/200 ML BAG IVPB ONE (15:33)
[2023-12-19] MEDS: AMINO ACIDS/PROTEIN HYDROLYS 30 ML LIQUID.PKT PO SCH (17:30)
[2023-12-19] MEDS ORDERED: SODIUM CHLORIDE 250 ML IV PRN (18:46)
[2023-12-19] MEDS: LATANOPROST 0.005% OPHTH SOLN 2.5ML BOTTLE OU SCH (23:05)
[2023-12-20 04:36] VITALS: BMI 18.6
[2023-12-21] MEDS: INSULIN ASPART SLIDING SCALE (NOVOLOG) 1 VIAL SQ SCH (16:16)
[2023-12-22] MEDS ORDERED: SODIUM CHLORIDE 250 ML IV PRN ×2 (08:39→11:45)
[2023-12-22] MEDS ORDERED: PROPOFOL 20 ML ONE (09:45)
[2023-12-22] MEDS ORDERED: ONDANSETRON 4 MG/2 ML VIAL ONE (09:50)
[2023-12-22] MEDS ORDERED: LIDOCAINE HCL/PF 2% SDV 5ML VIAL ONE (09:50)
[2023-12-22] MEDS: ceFAZolin SODIUM 1 GM VIAL IVPB ONE (10:15)
[2023-12-22] MEDS ORDERED: ONDANSETRON 4 MG/2 ML VIAL IVPUSH PRN ×2 (11:05→11:45)
[2023-12-22] MEDS ORDERED: LACTATED RINGERS SOLUTION 1,000 ML IV SCH (11:15)
[2023-12-22] MEDS ORDERED: POLYETHYLENE GLYCOL (HEALTHYLAX) 3350 17 GM PACKET PO PRN (11:45)
[2023-12-22] MEDS ORDERED: ACETAMINOPHEN 325 MG TABLET (FP) PO PRN (11:45)
[2023-12-22] MEDS ORDERED: oxyCODONE HCL 5 MG TABLET PO PRN (11:45)
[2023-12-22 14:28] LABS: EOS % 3.1 % (0-4.5); HEMATOCRIT 37.5 % (35.4-49); HEMOGLOBIN 12.1 GM/dL (11.7-16.9); MCH 30.8 pg (25.7-33.7); MCHC 32.4 g/dl (32.0-35.9); MEAN CELL VOLUME 95.1 fl (80-96); MEAN PLT VOLUME 8.1 fl (7.5-11.1); MONO % 9.2 % (3.8-10.2); NEUT % 77.7 % (42.8-82.8); PLATELET COUNT 207 10^3/uL (134-434); RBC 3.94 M/mm3 (4.00-5.60); RDW 18.7 % (11.9-15.9)
[2023-12-22 14:53] LABS: POTASSIUM 4.4 mmol/L (3.5-5.1)
[2023-12-22 14:55] LABS: ALBUMIN 2.7 g/dl (3.4-5.0); CALCIUM 8.6 mg/dL (8.5-10.1)
[2023-12-22 14:56] LABS: BLOOD UREA NITROGEN 53.9 mg/dL (7-18); MAGNESIUM 2.2 mg/dL (1.8-2.4)
[2023-12-22 14:58] LABS: PHOSPHOROUS 6.5 mg/dL (2.5-4.9)
[2023-12-22 14:59] LABS: CREATININE 3.4 mg/dL (0.55-1.3)
[2023-12-22 15:00] LABS: BILIRUBIN,TOTAL 0.4 mg/dL (0.2-1); TOT PROT 6.8 g/dl (6.4-8.2)
[2023-12-22] MEDS: AMINO ACIDS/PROTEIN HYDROLYS 30 ML LIQUID.PKT PO SCH (17:31)
[2023-12-22] MEDS: INSULIN ASPART SLIDING SCALE (NOVOLOG) 1 VIAL SQ SCH (17:33)
[2023-12-22] MEDS ORDERED: HEPARIN NA (PORCINE) 5,000 UNITS/ML 1ML VIAL SQ SCH (22:00)
[2023-12-22] MEDS: LATANOPROST 0.005% OPHTH SOLN 2.5ML BOTTLE OU SCH (23:14)
[2023-12-23 10:30] LABS: BASO % 1.4 % (0-2.0); EOS % 2.8 % (0-4.5); HEMATOCRIT 36.5 % (35.4-49); HEMOGLOBIN 11.9 GM/dL (11.7-16.9); MCH 30.9 pg (25.7-33.7); MCHC 32.7 g/dl (32.0-35.9); MEAN CELL VOLUME 94.6 fl (80-96); MEAN PLT VOLUME 8.2 fl (7.5-11.1); MONO % 11.5 % (3.8-10.2); NEUT % 75.3 % (42.8-82.8); PLATELET COUNT 198 10^3/uL (134-434); RBC 3.86 M/mm3 (4.00-5.60); RDW 18.5 % (11.9-15.9); WHITE BLOOD COUNT 7.3 K/mm3 (4.0-10.0)
[2023-12-23] MEDS: PANTOPRAZOLE 40 MG TABLET PO SCH (10:40)
[2023-12-23] MEDS: POVIDONE-IODINE 10% SOLN 118 ML BOTTLE TP SCH (10:41)
[2023-12-23 10:52] LABS: POTASSIUM 4.1 mmol/L (3.5-5.1)
[2023-12-23 11:16] LABS: CALCIUM 8.9 mg/dL (8.5-10.1)
[2023-12-23 11:17] LABS: BILIRUBIN,TOTAL 0.6 mg/dL (0.2-1); MAGNESIUM 2.2 mg/dL (1.8-2.4)
[2023-12-23 11:19] LABS: ALBUMIN 2.7 g/dl (3.4-5.0); BLOOD UREA NITROGEN 29.2 mg/dL (7-18)
[2023-12-23 11:20] LABS: CREATININE 2.4 mg/dL (0.55-1.3); PHOSPHOROUS 4.4 mg/dL (2.5-4.9)
[2023-12-23 11:21] LABS: TOT PROT 6.8 g/dl (6.4-8.2)
[2023-12-23] MEDS ORDERED: CEFTRIAXONE 2 GM/100 ML BAG IVPB ONE (20:30)
[2023-12-23] MEDS ORDERED: APIXABAN 2.5 MG TABLET PO SCH (22:00)
[2023-12-23] MEDS: APIXABAN 2.5 MG TABLET PO SCH (22:48)
[2023-12-24] MEDS: CEFTRIAXONE 2 GM-D5W BAG 2 GM/50 ML BAG IVPB ONE (00:29)
[2023-12-24 10:02] LABS: BASO % 1.4 % (0-2.0); EOS % 4.7 % (0-4.5); HEMATOCRIT 38.5 % (35.4-49); HEMOGLOBIN 12.8 GM/dL (11.7-16.9); MCH 31.5 pg (25.7-33.7); MCHC 33.2 g/dl (32.0-35.9); MEAN CELL VOLUME 94.8 fl (80-96); MEAN PLT VOLUME 8.3 fl (7.5-11.1); MONO % 9.2 % (3.8-10.2); NEUT % 73.7 % (42.8-82.8); PLATELET COUNT 206 10^3/uL (134-434); RBC 4.06 M/mm3 (4.00-5.60); RDW 18.5 % (11.9-15.9); WHITE BLOOD COUNT 7.1 K/mm3 (4.0-10.0)
[2023-12-24 10:18] LABS: POTASSIUM 4.1 mmol/L (3.5-5.1)
[2023-12-24 10:20] LABS: ALBUMIN 2.7 g/dl (3.4-5.0); CALCIUM 8.5 mg/dL (8.5-10.1)
[2023-12-24 10:21] LABS: BLOOD UREA NITROGEN 45.5 mg/dL (7-18); MAGNESIUM 2.1 mg/dL (1.8-2.4)
[2023-12-24 10:24] LABS: PHOSPHOROUS 4.8 mg/dL (2.5-4.9)
[2023-12-24 10:25] LABS: BILIRUBIN,TOTAL 0.5 mg/dL (0.2-1); TOT PROT 7.1 g/dl (6.4-8.2)
[2023-12-25 09:32] VITALS: TEMP 98.1
[2023-12-25 10:08] LABS: BASO % 1.2 % (0-2.0); EOS % 6.7 % (0-4.5); HEMATOCRIT 35.8 % (35.4-49); HEMOGLOBIN 12.1 GM/dL (11.7-16.9); MEAN CELL VOLUME 94.2 fl (80-96); MEAN PLT VOLUME 8.1 fl (7.5-11.1); MONO % 7.5 % (3.8-10.2); NEUT % 74.6 % (42.8-82.8); PLATELET COUNT 235 10^3/uL (134-434); RDW 18.5 % (11.9-15.9); WHITE BLOOD COUNT 6.5 K/mm3 (4.0-10.0)
[2023-12-25] MEDS ORDERED: SODIUM CHLORIDE 250 ML IV PRN (10:10)
[2023-12-25 10:43] VITALS: RESP 18
[2023-12-25 11:12] LABS: POTASSIUM 3.8 mmol/L (3.5-5.1)
[2023-12-25 11:14] LABS: ALBUMIN 2.6 g/dl (3.4-5.0); CALCIUM 8.3 mg/dL (8.5-10.1)
[2023-12-25 11:15] LABS: BLOOD UREA NITROGEN 29.6 mg/dL (7-18); MAGNESIUM 1.8 mg/dL (1.8-2.4)
[2023-12-25 11:18] LABS: CREATININE 2.1 mg/dL (0.55-1.3); PHOSPHOROUS 2.6 mg/dL (2.5-4.9)
[2023-12-25 11:19] LABS: BILIRUBIN,TOTAL 0.6 mg/dL (0.2-1); TOT PROT 6.9 g/dl (6.4-8.2)
[2023-12-25 12:45] VITALS: BP 117/77; PULSE 96
== END 2023-12-25 14:41 | DRG 474 ==
LOC: JER 03:01 → JERBED 05:57 → J8W 23:54 → J5S 12-20 15:28
PROVIDERS: ADMIT Internal Medicine
PROC: 0JDL0ZZ Extraction of Right Upper Leg Subcutaneous Tissue and Fascia, Open Approach (ICD-10-PCS; 2023-12-22)
PROC: 0Y6C0Z2 Detachment at Right Upper Leg, Mid, Open Approach (ICD-10-PCS; principal; 2023-12-22 10:00)
PROC: 5A1D70Z Performance of Urinary Filtration, Intermittent, Less than 6 Hours Per Day (ICD-10-PCS; 2023-12-25)
DX: T87.81 Dehiscence of amputation stump (principal); N18.6 End stage renal disease; E46 Unspecified protein-calorie malnutrition; Z68.1 Body mass index [BMI] 19.9 or less, adult; I12.0 Hypertensive chronic kidney disease with stage 5 chronic kidney disease or end stage renal disease; Y83.9 Surgical procedure, unspecified as the cause of abnormal reaction of the patient, or of later complication, without mention of misadventure at the time of the procedure; I25.10 Atherosclerotic heart disease of native coronary artery without angina pectoris; J44.9 Chronic obstructive pulmonary disease, unspecified; F03.90 Unspecified dementia, unspecified severity, without behavioral disturbance, psychotic disturbance, mood disturbance, and anxiety; I73.9 Peripheral vascular disease, unspecified; E11.9 Type 2 diabetes mellitus without complications; Z99.2 Dependence on renal dialysis; K21.9 Gastro-esophageal reflux disease without esophagitis; H40.9 Unspecified glaucoma; L08.9 Local infection of the skin and subcutaneous tissue, unspecified
CPT/HCPCS: 0241U-QW; 36415; 71045-TC-FY; 73552-TC-RT-FY; 80053; 81003; 82803; 82962; 83605; 83735; 84100; 84484; 85025; 85610; 85730; 86850; 86900; 86901; 87040; 87070; 87086; 87205; 87340; 88307-TC; 88311-TC; 93005; 93010; 94760; 97161-GP; 99285-25; G0480; J1644

== ENCOUNTER 2024-04-14 13:51 | Inpatient (IN) | payer OTHER ==
[2024-04-14] MEDS ORDERED: ONDANSETRON *ODT* 4 MG TABLET ONE (15:33)
[2024-04-14] MEDS: ONDANSETRON *ODT* 4 MG TABLET SL ONE (15:56)
[2024-04-14] MEDS ORDERED: ACETAMINOPHEN 325 MG TABLET (FP) ONE (15:57)
[2024-04-14] MEDS: ACETAMINOPHEN 500 MG TABLET (FP) PO ONE (16:43)
[2024-04-14 17:01] LABS: EPI CELLS >36 /uL (0-25.1); HYALINE CASTS 105 /uL (0-3.1); PH,URINE 5.5 (5.0-8.0); URINE APPEARANCE TURBID; URINE BACTERIA 7960 /uL (0-1359); URINE BILIRUBIN NEGATIVE (NEGATIVE); URINE COLOR YELLOW; URINE GLUCOSE (UA) NEGATIVE (NEGATIVE); URINE KETONE NEGATIVE (NEGATIVE); URINE LEUK ESTERASE 3+ (NEGATIVE); URINE NITRITE NEGATIVE (NEGATIVE); URINE PROTEIN 3+ (NEGATIVE); URINE WBC 28859 /uL (0-25.8)
[2024-04-14] MEDS ORDERED: ACETAMINOPHEN INJECTION 100 ML ONE (17:04)
[2024-04-14 17:10] LABS: POTASSIUM 3.9 mmol/L (3.5-5.1)
[2024-04-14 17:11] LABS: VENOUS BASE EXCESS 1.6 mmol/L (-2-2); VENOUS O2 SATURATION 61.4 % (70-80); VENOUS PCO2 35.1 mmHg (38-52); VENOUS PH 7.471 (7.310-7.410)
[2024-04-14 17:12] LABS: BLOOD UREA NITROGEN 84.3 mg/dL (7-18)
[2024-04-14 17:16] LABS: CREATININE 3.4 mg/dL (0.55-1.3); PHOSPHOROUS 3.6 mg/dL (2.5-4.9)
[2024-04-14] MEDS: ACETAMINOPHEN 1000 MG/100 ML BAG IVPB ONE (17:16)
[2024-04-14 17:17] LABS: BILIRUBIN,TOTAL 0.9 mg/dL (0.2-1); TOT PROT 6.9 g/dl (6.4-8.2)
[2024-04-14 17:21] LABS: HEMATOCRIT 29.9 % (35.4-49); HEMOGLOBIN 10.1 GM/dL (11.7-16.9); MCH 34.1 pg (25.7-33.7); MCHC 33.6 g/dl (32.0-35.9); MEAN CELL VOLUME 101.4 fl (80-96); PLATELET COUNT 164 10^3/uL (134-434); RBC 2.95 M/mm3 (4.00-5.60); RDW 14.2 % (11.9-15.9); WHITE BLOOD COUNT 15.3 K/mm3 (4.0-10.0)
[2024-04-14] MEDS: SODIUM CHLORIDE 1,000 ML IV ONE (17:23)
[2024-04-14 17:29] LABS: URINE RBC 6775.7 /uL (0-23.9)
[2024-04-14 17:40] LABS: LACTIC ACID 2.9 mmol/L (0.4-2.0)
[2024-04-14] MEDS ORDERED: ASPIRIN 300 MG SUPP.RECT RC ONE (18:13)
[2024-04-14] MEDS: ASPIRIN 300 MG SUPP.RECT RC SCH (18:44)
[2024-04-14 18:56] LABS: INR 1.27 (0.83-1.09)
[2024-04-14] MEDS ORDERED: PIPERACILLIN/TAZOB 3.375 GM 3.375 GM/50 ML BAG IVPB ONE (18:57)
[2024-04-14 18:59] LABS: ACTIVATED PTT 35.1 SECONDS (25.2-36.5)
[2024-04-14] MEDS: PIPERACILLIN/TAZOB 3.375 GM 3.375 GM in DEXTROSE 5%-WATER - 50 ML IVPB ONE (19:06)
[2024-04-14] MEDS: ASPIRIN 81 MG CHEWABLE TABLETS PO ONE (19:19)
[2024-04-14] MEDS ORDERED: VANCOMYCIN 1 GM PREMIX (F) 1 GM/200 ML BAG ONE (19:21)
[2024-04-14] MEDS: VANCOMYCIN 1 GM PREMIX (F) 1 GM/200 ML BAG IVPB ONE (19:22)
[2024-04-14 19:39] LABS: ANISOCYTOSIS 3+; MACROCYTOSIS 1+
[2024-04-15] MEDS ORDERED: ONDANSETRON 4 MG/2 ML VIAL IVPUSH PRN ×2 (00:51→18:46)
[2024-04-15] MEDS ORDERED: ACETAMINOPHEN 1000 MG/100 ML BAG IVPB PRN ×2 (00:52→01:32)
[2024-04-15] MEDS: POLYETHYLENE GLYCOL (HEALTHYLAX) 3350 17 GM PACKET PO ONE (01:28)
[2024-04-15] MEDS ORDERED: ACETAMINOPHEN INJECTION 100 ML ONE (01:36)
[2024-04-15] MEDS: MINERAL OIL ENEMA 133 ML ENEMA RC ONE ×3 (02:06→09:17)
[2024-04-15] MEDS ORDERED: SILVER SULFADIAZINE 1% TOP CREAM 400 GM JAR TP PRN ×2 (03:03→18:46)
[2024-04-15 03:39] LABS: LACTIC ACID 2.5 mmol/L (0.4-2.0)
[2024-04-15] MEDS: HEPARIN NA (PORCINE) 5,000 UNITS/ML 1ML VIAL SQ SCH ×2 (05:34→22:05)
[2024-04-15] MEDS: PANTOPRAZOLE 20 MG TABLET PO SCH (06:49)
[2024-04-15] MEDS: INSULIN ASPART SLIDING SCALE (NOVOLOG) 1 VIAL SQ SCH (06:50)
[2024-04-15 07:22] LABS: HEMATOCRIT 29.3 % (35.4-49); HEMOGLOBIN 9.8 GM/dL (11.7-16.9); MCH 34.4 pg (25.7-33.7); MCHC 33.3 g/dl (32.0-35.9); MEAN CELL VOLUME 103.3 fl (80-96); MEAN PLT VOLUME 8.8 fl (7.5-11.1); PLATELET COUNT 124 10^3/uL (134-434); RBC 2.84 M/mm3 (4.00-5.60); RDW 14.2 % (11.9-15.9)
[2024-04-15 07:45] LABS: POTASSIUM 3.8 mmol/L (3.5-5.1)
[2024-04-15 07:47] LABS: ALBUMIN 2.7 g/dl (3.4-5.0); BLOOD UREA NITROGEN 87.5 mg/dL (7-18); CALCIUM 8.6 mg/dL (8.5-10.1)
[2024-04-15 07:51] LABS: CREATININE 3.7 mg/dL (0.55-1.3)
[2024-04-15 07:52] LABS: BILIRUBIN,TOTAL 0.7 mg/dL (0.2-1); TOT PROT 6.3 g/dl (6.4-8.2)
[2024-04-15 09:16] LABS: ANISOCYTOSIS 1+; MACROCYTOSIS 1+
[2024-04-15] MEDS: PIPERACILLIN/TAZOB 2.25 GM 2.25 GM/50 ML BAG IVPB SCH ×2 (09:17→21:45)
[2024-04-15] MEDS: POLYETHYLENE GLYCOL (HEALTHYLAX) 3350 17 GM PACKET PO SCH ×3 (09:17→22:05)
[2024-04-15] MEDS: ZINC SULFATE 220 MG CAPSULE (FP) PO SCH (09:18)
[2024-04-15] MEDS: LOSARTAN POTASSIUM 50 MG TABLET PO SCH (09:18)
[2024-04-15] MEDS: COLLAGENASE CLOSTRIDIUM HIST. 30 GRAMS TUBE TP SCH (09:19)
[2024-04-15] MEDS: PIPERACILLIN/TAZOB 2.25 GM 2.25 GM in DEXTROSE 5%-WATER - 50 ML IVPB SCH (09:30)
[2024-04-15] MEDS ORDERED: LIDOCAINE HCL 1%, 10 MG/ML (20ML VIAL) ONE (15:00)
[2024-04-15] MEDS ORDERED: HEPARIN NA (PORCINE) 5,000 UNITS/ML 1ML VIAL ONE ×2 (15:01→17:39)
[2024-04-15] MEDS ORDERED: DEXMEDETOMIDINE HCL 200 MCG/2 ML IVPB ONE (15:45)
[2024-04-15] MEDS ORDERED: MIDAZOLAM HCL 2 MG/2 ML SINGLE DOSE VIAL ONE ×2 (16:13→17:27)
[2024-04-15] MEDS ORDERED: PROPOFOL 20 ML ONE (16:14)
[2024-04-15] MEDS ORDERED: SODIUM CHLORIDE 250 ML IV PRN ×2 (17:21→18:46)
[2024-04-15] MEDS: LIDOCAINE HCL 1%, 10 MG/ML (20ML VIAL) NR ONE ×2 (17:24)
[2024-04-16] MEDS: PIPERACILLIN/TAZOB 2.25 GM 2.25 GM/50 ML BAG IVPB SCH (02:55)
[2024-04-16] MEDS: PANTOPRAZOLE 20 MG TABLET PO SCH (06:26)
[2024-04-16] MEDS: INSULIN ASPART SLIDING SCALE (NOVOLOG) 1 VIAL SQ SCH (06:35)
[2024-04-16 08:42] LABS: BASO % 0.1 % (0-2.0); EOS % 0.5 % (0-4.5); HEMATOCRIT 25.8 % (35.4-49); HEMOGLOBIN 8.7 GM/dL (11.7-16.9); INR 1.11 (0.83-1.09); LYMPH % 4.1 % (8-40); MCH 34.7 pg (25.7-33.7); MCHC 33.9 g/dl (32.0-35.9); MEAN CELL VOLUME 102.4 fl (80-96); MEAN PLT VOLUME 9.2 fl (7.5-11.1); MONO % 5.8 % (3.8-10.2); NEUT % 89.5 % (42.8-82.8); PLATELET COUNT 116 10^3/uL (134-434); PROTHROMBIN TIME (PATIENT) 12.2 SEC (9.7-13.0); RBC 2.52 M/mm3 (4.00-5.60); RDW 14.3 % (11.9-15.9); WHITE BLOOD COUNT 7.5 K/mm3 (4.0-10.0)
[2024-04-16 08:59] LABS: POTASSIUM 3.9 mmol/L (3.5-5.1)
[2024-04-16 09:05] LABS: CALCIUM 8.3 mg/dL (8.5-10.1)
[2024-04-16 09:06] LABS: ALBUMIN 2.7 g/dl (3.4-5.0); BLOOD UREA NITROGEN 101.5 mg/dL (7-18)
[2024-04-16 09:08] LABS: CREATININE 4.3 mg/dL (0.55-1.3)
[2024-04-16 09:10] LABS: TOT PROT 6.3 g/dl (6.4-8.2)
[2024-04-16] MEDS: COLLAGENASE CLOSTRIDIUM HIST. 30 GRAMS TUBE TP SCH (10:38)
[2024-04-16] MEDS: LOSARTAN POTASSIUM 50 MG TABLET PO SCH (10:38)
[2024-04-16] MEDS: ZINC SULFATE 220 MG CAPSULE (FP) PO SCH (10:39)
[2024-04-16] MEDS: ASPIRIN 300 MG SUPP.RECT RC SCH (11:12)
[2024-04-16] MEDS: EPOETIN ALFA-EPBX 3,000 UNIT/ML VIAL IVPUSH ONE (15:01)
[2024-04-16] MEDS ORDERED: EPOETIN ALFA-EPBX 3,000 UNIT/ML VIAL IVPUSH ONE (17:21)
[2024-04-16] MEDS ORDERED: MEROPENEM 500 MG in DEXTROSE 5%-WATER 100 ML IVPB SCH (21:45)
[2024-04-16] MEDS: MEROPENEM-0.9% SODIUM CHLORIDE 500 MG/50 ML BAG IVPB SCH (22:10)
[2024-04-17 11:14] VITALS: BMI 18.1
[2024-04-17] MEDS: VITAMIN B COMP W-C 1 EA TABLET (NEPHRO-VITE) PO SCH (12:41)
[2024-04-17] MEDS: VANCOMYCIN 1 GM PREMIX (F) 1 GM/200 ML BAG IVPB ONE (12:41)
[2024-04-18] MEDS ORDERED: SODIUM CHLORIDE 250 ML IV PRN (09:33)
[2024-04-18 10:02] LABS: BASO % 0.5 % (0-2.0); EOS % 0.9 % (0-4.5); HEMATOCRIT 27.7 % (35.4-49); HEMOGLOBIN 9.3 GM/dL (11.7-16.9); LYMPH % 11.8 % (8-40); MCH 34.5 pg (25.7-33.7); MCHC 33.5 g/dl (32.0-35.9); MEAN CELL VOLUME 102.9 fl (80-96); MEAN PLT VOLUME 9.7 fl (7.5-11.1); MONO % 9.6 % (3.8-10.2); NEUT % 77.2 % (42.8-82.8); PLATELET COUNT 97 10^3/uL (134-434); RBC 2.69 M/mm3 (4.00-5.60); RDW 14.3 % (11.9-15.9); WHITE BLOOD COUNT 5.1 K/mm3 (4.0-10.0)
[2024-04-18 10:06] LABS: POTASSIUM 3.9 mmol/L (3.5-5.1)
[2024-04-18 10:13] LABS: ALBUMIN 2.8 g/dl (3.4-5.0)
[2024-04-18 10:15] LABS: CALCIUM 8.6 mg/dL (8.5-10.1); MAGNESIUM 2.1 mg/dL (1.8-2.4)
[2024-04-18 10:16] LABS: CREATININE 4.2 mg/dL (0.55-1.3)
[2024-04-18 10:17] LABS: TOT PROT 6.6 g/dl (6.4-8.2)
[2024-04-18] MEDS: EPOETIN ALFA-EPBX 3,000 UNIT/ML VIAL IVPUSH ONE (10:18)
[2024-04-18 10:33] LABS: BILIRUBIN,TOTAL 0.8 mg/dL (0.2-1); BLOOD UREA NITROGEN 66.7 mg/dL (7-18)
[2024-04-18] MEDS: ASPIRIN COATED 81 MG TABLET.EC PO SCH (13:48)
[2024-04-18] MEDS ORDERED: INSULIN ASPART SLIDING SCALE (NOVOLOG) 1 VIAL SQ ONE (17:03)
[2024-04-18] MEDS: ERTAPENEM SODIUM 1 GM in SODIUM CHLORIDE 50 ML IVPB SCH (19:05)
[2024-04-19] MEDS ORDERED: SODIUM CHLORIDE 250 ML IV PRN (11:01)
[2024-04-19] MEDS ORDERED: INSULIN ASPART SLIDING SCALE (NOVOLOG) 1 VIAL SQ ONE ×2 (11:46→17:13)
[2024-04-19 14:44] VITALS: BP 112/65; PULSE 87; RESP 18; TEMP 98.4
[2024-04-20] MEDS ORDERED: EPOETIN ALFA-EPBX 3,000 UNIT/ML VIAL SQ ONE (00:01)
== END 2024-04-19 18:05 | DRG 853 ==
LOC: JER 13:51 → JERBED 22:35 → J4S 04-15 02:26 → J8W 04-15 20:09
PROVIDERS: ADMIT Internal Medicine; ATTEND Internal Medicine
PROC: 057Y3ZZ Dilation of Upper Vein, Percutaneous Approach (ICD-10-PCS; 2024-04-15)
PROC: 05C73ZZ Extirpation of Matter from Right Axillary Vein, Percutaneous Approach (ICD-10-PCS; principal; 2024-04-15 16:30)
PROC: 05773ZZ Dilation of Right Axillary Vein, Percutaneous Approach (ICD-10-PCS; 2024-04-15 16:30)
PROC: 5A1D70Z Performance of Urinary Filtration, Intermittent, Less than 6 Hours Per Day (ICD-10-PCS; 2024-04-16)
PROC: 5A1D70Z Performance of Urinary Filtration, Intermittent, Less than 6 Hours Per Day (ICD-10-PCS; 2024-04-18)
DX: A41.89 Other specified sepsis (principal); J18.9 Pneumonia, unspecified organism; N18.6 End stage renal disease; I12.0 Hypertensive chronic kidney disease with stage 5 chronic kidney disease or end stage renal disease; J98.11 Atelectasis; J90 Pleural effusion, not elsewhere classified; N39.0 Urinary tract infection, site not specified; T82.868A Thrombosis due to vascular prosthetic devices, implants and grafts, initial encounter; I87.1 Compression of vein; R65.20 Severe sepsis without septic shock; J44.9 Chronic obstructive pulmonary disease, unspecified; R00.0 Tachycardia, unspecified; I70.0 Atherosclerosis of aorta; R79.89 Other specified abnormal findings of blood chemistry; K59.00 Constipation, unspecified; I25.10 Atherosclerotic heart disease of native coronary artery without angina pectoris; K52.89 Other specified noninfective gastroenteritis and colitis; K21.9 Gastro-esophageal reflux disease without esophagitis; H40.9 Unspecified glaucoma; E11.22 Type 2 diabetes mellitus with diabetic chronic kidney disease; L89.152 Pressure ulcer of sacral region, stage 2; B96.20 Unspecified Escherichia coli [E. coli] as the cause of diseases classified elsewhere; F03.90 Unspecified dementia, unspecified severity, without behavioral disturbance, psychotic disturbance, mood disturbance, and anxiety; Z74.01 Bed confinement status; Z89.611 Acquired absence of right leg above knee; Z89.512 Acquired absence of left leg below knee; Y83.8 Other surgical procedures as the cause of abnormal reaction of the patient, or of later complication, without mention of misadventure at the time of the procedure
CPT/HCPCS: 0241U-QW; 36415; 71045-TC-FY; 74177-TC; 76000-TC-FY; 76705-TC; 80053; 81003; 82607; 82746; 82803; 82962; 83605; 83690; 83735; 84100; 84484; 85025; 85610; 85730; 86803; 87040; 87086; 87186; 87340; 93005; 93010; 93306-TC; 94760; 99285-25; C1757; G0480; J0131; J1644; Q0162; Q5106

== ENCOUNTER 2024-05-03 04:49 | Emergency (ER) | payer OTHER, BC ==
[2024-05-03 05:00] VITALS: TEMP 97.9; BMI 20.9
[2024-05-03 07:33] VITALS: PULSE 75
[2024-05-03 09:05] VITALS: BP 158/67; RESP 17
== END 2024-05-03 08:45 ==
LOC: JER 04:49
DX: S41.111A Laceration without foreign body of right upper arm, initial encounter (principal); X58.XXXA Exposure to other specified factors, initial encounter
CPT/HCPCS: 99283-25

== ENCOUNTER 2024-09-28 12:55 | Inpatient (IN) | payer OTHER, BC ==
[2024-09-28 13:06] VITALS: BMI 24.2
[2024-09-28 15:02] LABS: MCHC 31.6 g/dl (32.3-36.5); MEAN CELL VOLUME 109.7 fl (79.0-92.2); MEAN PLT VOLUME 10.5 fl (9.4-12.4); RDW 13.4 % (12.6-16.6)
[2024-09-28 15:33] LABS: GLUCOSE,RANDOM 217.0 mg/dL (74-106)
[2024-09-28 15:34] LABS: CO2 25.0 mmol/L (21-32)
[2024-09-28 15:37] LABS: CREATININE 3.1 mg/dL (0.55-1.3); SGOT/AST 11.0 U/L (15-37); SGPT/ALT 18.0 U/L (13-61)
[2024-09-28 15:38] LABS: TOT PROT 7.4 g/dl (6.4-8.2)
[2024-09-28 15:39] LABS: ALK PHOS 125.0 U/L (45-117)
[2024-09-28] MEDS: LACTATED RINGERS SOLUTION 1000 ML INFUS.BAG IV ONE (15:40)
[2024-09-28] MEDS: LACTATED RINGERS SOLUTION 1,000 ML/1,000 ML INFUS.BAG IV ONE (16:05)
[2024-09-28 16:50] LABS: HCV DIAGNOSTIC IN-HOUSE W/RFLX NON-REACTIVE (NONREACTIVE)
[2024-09-28 16:52] LABS: HIV INTERPRETATION NEGATIVE (NEGATIVE)
[2024-09-28 17:18] LABS: URINE APPEARANCE Slightly Cloudy; URINE BILIRUBIN Negative (NEGATIVE); URINE COLOR Other; URINE GLUCOSE (UA) Negative (NEGATIVE); URINE KETONE Negative (NEGATIVE); URINE LEUK ESTERASE 3+ (NEGATIVE); URINE NITRITE Negative (NEGATIVE); URINE PROTEIN 3+ (NEGATIVE); URINE UROBILINOGEN 0.2 mg/dL (0.2-1.0)
[2024-09-28] MEDS ORDERED: VANCOMYCIN HCL 1,500 MG in DEXTROSE 5%-WATER - 500 ML IVPB ONE (18:18)
[2024-09-28] MEDS ORDERED: CEFTRIAXONE 1 GM/50 ML BAG ONE (18:33)
[2024-09-28] MEDS ORDERED: ACETAMINOPHEN 325 MG TABLET (FP) PO PRN (20:02)
[2024-09-28] MEDS ORDERED: ACETAMINOPHEN WITH CODEINE 300MG/30MG TABLET PO PRN (20:02)
[2024-09-28] MEDS ORDERED: VALACYCLOVIR HCL 1000 MG PO SCH (20:15)
[2024-09-28] MEDS ORDERED: MEROPENEM 1 GM VIAL (RESTRICTED TO ID) IVPB ONE (20:40)
[2024-09-28] MEDS: MEROPENEM 1 GM in DEXTROSE 5%-WATER 100 ML IVPB ONE (20:50)
[2024-09-28] MEDS: VANCOMYCIN PREMIX 1.5 GM 1,500 MG/300 ML BAG IVPB ONE (21:23)
[2024-09-28] MEDS ORDERED: HEPARIN NA (PORCINE) 5,000 UNITS/ML 1ML VIAL ONE (21:58)
[2024-09-28] MEDS ORDERED: ATORVASTATIN CA 40 MG TABLET (FP) ONE (21:58)
[2024-09-28] MEDS ORDERED: INSULIN GLARGINE (LANTUS) 100 UNITS/ML UNITS SQ ONE (21:59)
[2024-09-28] MEDS: ATORVASTATIN CA 40 MG TABLET (FP) PO SCH (22:05)
[2024-09-28] MEDS: INSULIN GLARGINE (LANTUS) 100 UNITS/ML UNITS SQ SCH (22:05)
[2024-09-28] MEDS: HEPARIN NA (PORCINE) 5,000 UNITS/ML 1ML VIAL SQ SCH (22:05)
[2024-09-28 23:26] LABS: EPI CELLS 119.8 /uL (0-25.1); HYALINE CASTS 0.75 /uL (0-3.1); URINE BACTERIA 74.4 /uL (0-1359); URINE RBC 40.8 /uL (0-23.9); URINE WBC 319.4 /uL (0-25.8)
[2024-09-29] MEDS ORDERED: MEROPENEM 1 GM in DEXTROSE 5%-WATER 100 ML IVPB SCH ×2 (10:00→20:00)
[2024-09-29 10:45] LABS: ABSOLUTE IMMATURE GRANULOCYTES 0.06 x10^3/uL (0.0-0.031); BASOPHILS # 0.10 x10^3/uL (0.01-0.08); EOSINOPHIL % 4.0 % (0.8-7.0); EOSINOPHILS # 0.39 x10^3/uL (0.04-0.54); MCHC 32.0 g/dl (32.3-36.5); MEAN CELL VOLUME 108.3 fl (79.0-92.2); MEAN PLT VOLUME 11.1 fl (9.4-12.4); MONOCYTE # 0.66 x10^3/uL (0.30-0.82); MONOCYTE % 6.7 % (5.3-12.2); RDW 13.2 % (12.6-16.6)
[2024-09-29] MEDS: valACYclovir HCL 500 MG TABLET (FP) PO SCH (10:54)
[2024-09-29] MEDS: LOSARTAN POTASSIUM 50 MG TABLET PO SCH (10:54)
[2024-09-29] MEDS: FAMOTIDINE 10 MG TABLET PO SCH (10:54)
[2024-09-29] MEDS ORDERED: SODIUM CHLORIDE 250 ML IV PRN (11:45)
[2024-09-29 11:52] LABS: CO2 25.0 mmol/L (21-32); GLUCOSE,RANDOM 74.0 mg/dL (74-106)
[2024-09-29 11:55] LABS: CREATININE 3.4 mg/dL (0.55-1.3); SGOT/AST 15.0 U/L (15-37); SGPT/ALT 18.0 U/L (13-61)
[2024-09-29 11:58] LABS: ALK PHOS 118.0 U/L (45-117); TOT PROT 7.5 g/dl (6.4-8.2)
[2024-09-29] MEDS: EPOETIN ALFA-EPBX 2,000 UNIT/ML VIAL SQ ONE (16:00)
[2024-09-29 19:18] LABS: HEPATITIS B SURF AG NON-MATERN NON-REACTIVE (NONREACTIVE)
[2024-09-29] MEDS: MEROPENEM 500 MG in DEXTROSE 5%-WATER 100 ML IVPB SCH (19:41)
[2024-09-29] MEDS: ACYCLOVIR INJECTION 350 MG in DEXTROSE 5%-WATER - 100 ML IVPB ONE (19:55)
[2024-09-30] MEDS: MEROPENEM-0.9% SODIUM CHLORIDE 500 MG/50 ML BAG IVPB SCH (06:07)
[2024-09-30] MEDS ORDERED: ACYCLOVIR 1000 MG (50MG/ML) VIAL IVPB SCH (10:00)
[2024-09-30] MEDS: ACYCLOVIR INJECTION 350 MG in DEXTROSE 5%-WATER - 100 ML IVPB SCH (17:31)
[2024-09-30] MEDS: ERTAPENEM SODIUM 0.5 GM in SODIUM CHLORIDE 50 ML IVPB ONE (21:39)
[2024-10-01 08:36] LABS: ABSOLUTE IMMATURE GRANULOCYTES 0.02 x10^3/uL (0.0-0.031); BASOPHILS # 0.07 x10^3/uL (0.01-0.08); EOSINOPHIL % 6.4 % (0.8-7.0); EOSINOPHILS # 0.25 x10^3/uL (0.04-0.54); MCHC 31.9 g/dl (32.3-36.5); MEAN CELL VOLUME 107.3 fl (79.0-92.2); MEAN PLT VOLUME 10.2 fl (9.4-12.4); MONOCYTE # 0.51 x10^3/uL (0.30-0.82); MONOCYTE % 13.0 % (5.3-12.2); RDW 13.3 % (12.6-16.6)
[2024-10-01 09:38] LABS: CREATININE 3.1 mg/dL (0.55-1.3)
[2024-10-01 09:43] LABS: CO2 29.0 mmol/L (21-32); GLUCOSE,RANDOM 104.0 mg/dL (74-106)
[2024-10-01] MEDS ORDERED: SODIUM CHLORIDE 250 ML IV PRN (13:51)
[2024-10-01] MEDS: EPOETIN ALFA-EPBX 3,000 UNIT/ML VIAL IVPUSH ONE (15:59)
[2024-10-01] MEDS: VANCOMYCIN/WATER FOR INJ (PEG) 750 MG/150 ML BAG IVPB SCH (16:01)
[2024-10-01 16:56] VITALS: RESP 18
[2024-10-01] MEDS: ERTAPENEM SODIUM 1 GM in SODIUM CHLORIDE 50 ML IVPB SCH (17:24)
[2024-10-02 11:40] VITALS: BP 142/51; PULSE 73; TEMP 98.2
== END 2024-10-02 15:58 | DRG 690 ==
LOC: JER 12:55 → JERBED 18:51 → J5S 22:57
PROVIDERS: ADMIT Student in an Organized Health Care Education/Training Program; ATTEND Internal Medicine
PROC: 5A1D70Z Performance of Urinary Filtration, Intermittent, Less than 6 Hours Per Day (ICD-10-PCS; principal; 2024-09-29)
DX: N12 Tubulo-interstitial nephritis, not specified as acute or chronic (principal); I12.0 Hypertensive chronic kidney disease with stage 5 chronic kidney disease or end stage renal disease; B02.0 Zoster encephalitis; I25.10 Atherosclerotic heart disease of native coronary artery without angina pectoris; J44.9 Chronic obstructive pulmonary disease, unspecified; E11.22 Type 2 diabetes mellitus with diabetic chronic kidney disease; N18.6 End stage renal disease; Z99.2 Dependence on renal dialysis; E78.5 Hyperlipidemia, unspecified; K21.9 Gastro-esophageal reflux disease without esophagitis; Z74.01 Bed confinement status; F03.90 Unspecified dementia, unspecified severity, without behavioral disturbance, psychotic disturbance, mood disturbance, and anxiety
CPT/HCPCS: 36415; 70450-TC; 71045-TC-FY; 74176-TC; 80048; 80053; 81003; 82140; 82550; 82962; 83735; 84100; 84484; 85025; 85027; 86704; 86803; 87040; 87086; 87340; 87389; 87517; 87637-QW; 93005; 93010; 99285-25; G0480; Q5106